=== PATIENT | male | born 1930 | race Two or more races ===

== ENCOUNTER 2017-04-27 14:08 | Emergency (ER) | payer MEDICARE, MEDICAID ==
[~2017-04-27] VITALS: Ht 175.3 cm; Wt 74.9 kg
[2017-04-27] MEDS ORDERED: ALTEPLASE 100MG/VIAL IV STA (14:40)
[2017-04-27] MEDS ORDERED: ALTEPLASE IV STA (14:40)
[2017-04-27 15:09] LABS: INR 1.3; PROTHROMBIN TIME 13.3 sec (9.4-11.6)
[2017-04-27 15:10] LABS: CARBON DIOXIDE 27 mEq/L (21-32); CHLORIDE 99 mEq/L (98-107); ETHANOL BLOOD < 10 mg/dL
[2017-04-27 15:15] LABS: TROPONIN I 0.17 ng/mL (0.00-0.04)
[2017-04-27 15:30] LABS: BASOPHILS % 0.6 % (0.0-2.0); EOSINOPHILS % 0.8 % (0.0-5.0); HEMATOCRIT. 35.3 % (42.0-52.0); HEMOGLOBIN. 12.2 g/dL (14.0-18.0); LYMPHOCYTES % 23.4 % (20.0-50.0); MEAN CORPUSCULAR HEMOGLOBIN 33.6 pg (28.0-32.0); MEAN CORPUSCULAR VOLUME 97.6 fL (80.0-94.0); MEAN PLATELET VOLUME 7.7 fl (7.4-10.4); MONOCYTES % 8.5 % (2.0-8.0); NEUTROPHILS % 66.7 % (40.0-76.0); PLATELET 176 x1000/uL (130-400); RED BLOOD CELL COUNT 3.62 mill/uL (4.7-6.1); RED CELL DISTRIBUTION WIDTH 16.7 % (11.6-14.6)
[2017-04-27 15:52] LABS: DIGOXIN 0.6 ng/mL (0.9-2.0)
[2017-04-27] MEDS ORDERED: ISOS10TA2 PO (15:53)
[2017-04-27] MEDS ORDERED: DIGO250T4 PO (15:54)
[2017-04-27] MEDS ORDERED: HYDR200T35 PO (15:54)
[2017-04-27] MEDS ORDERED: PRED5TAB48 PO (15:55)
[2017-04-27] MEDS ORDERED: CARV6.2548 PO (15:56)
[2017-04-27] MEDS ORDERED: ESCI10TA54 PO (15:56)
[2017-04-27] MEDS ORDERED: SPIR25TA4 PO (15:57)
[2017-04-27 16:02] VITALS: BP 123/65
== END 2017-04-27 16:12 | disposition short-term general hospital (02) ==
LOC: ER 14:49
DX: I63.9 Cerebral infarction, unspecified (principal); R41.4 Neurologic neglect syndrome; I48.91 Unspecified atrial fibrillation; I11.0 Hypertensive heart disease with heart failure; I50.9 Heart failure, unspecified; I25.10 Atherosclerotic heart disease of native coronary artery without angina pectoris; J45.909 Unspecified asthma, uncomplicated; G89.29 Other chronic pain; M79.606 Pain in leg, unspecified; F41.9 Anxiety disorder, unspecified; Z79.899 Other long term (current) drug therapy
CPT/HCPCS: 36415; 70450; 71010; 80053; 80162; 82962; 83880; 84484; 85025; 85610; 85730; 86850; 86900; 86901; 93005; 99291; G0482; J2997